=== PATIENT | female | born 1960 | race Caucasian/White ===

== ENCOUNTER 2019-07-03 09:47 | Emergency (ER) | payer BC ==
[2019-07-03 09:53] VITALS: BP 145/100
[2019-07-03] MEDS ORDERED: Naproxen TAB* 250 MG PO ONE (10:19)
--- NOTE | 2019-07-03 11:47 | ED ---
Upper Extremity Pain - HPI Summary HPI Summary: Patient is a 58-year-old female presenting to the ED after a fall last evening. She states she was drinking alcohol slipped, falling onto her left outstretched hand. She is endorsing pain over the dorsum of the left wrist without pain otherwise. There is a small abrasion to the right upper eyebrow with some ecchymosis. She denies any headache, visual changes, confusion or memory loss. She denies any other symptoms other than left wrist pain. She states she is otherwise healthy, has not taken any medication for this, however has been using ice. Symptoms are worse with flexion and extension and better with rest. She denies any decreased sensation. - History of Current Complaint Chief Complaint: EDFall Stated Complaint: LT WRIST INJ FROM FALL PER PT Time Seen by Provider: 07/03/19 09:58 Hx Obtained From: Patient Onset/Duration: Started Hours Ago Timing: Constant Severity Initially: Moderate Severity Currently: Moderate Pain Location: Wrist Character: Aching Aggravating Factor(s): Movement, Lifting, Flexion, Extension, Internal/External Rotation Alleviating Factor(s): Rest, Ice Associated Signs & Symptoms: Negative: Swelling, Redness, Bruising, Weakness, Numbness/Tingling Related History: Dominant Hand Right - Risk Factors Non-Orthopedic Risk Factor: Negative DVT Risk Factors: Negative Septic Arthritis Risk Factor: Negative Compartment Syndrome Risk Factors: Pain - Allergies/Home Medications Allergies/Adverse Reactions: Allergies Allergy/AdvReac Type Severity Reaction Status Date / Time phenytoin [From Dilantin] Allergy Severe Rash Verified 07/03/19 09:53 morphine AdvReac Severe Vomiting Verified 07/03/19 09:53 PMH/Surg Hx/FS Hx/Imm Hx Previously Healthy: Yes - Immunization History Hx Pertussis Vaccination: No Immunizations Up to Date: Yes Infectious Disease History: No Infectious Disease History: Denies: Traveled Outside the [place] in Last 30 Days - Social History Occupation: Employed Full-time Lives: With Family Alcohol Use: Occasionally Hx Substance Use: No Substance Use Type: Reports: None Hx Tobacco Use: No Smoking Status (MU): Unknown if Ever Smoked Review of Systems Negative: Fever, Chills, Fatigue, Skin Diaphoresis Negative: Palpitations, Chest Pain Negative: Shortness Of Breath, Cough Genitourinary: Negative Positive: no symptoms reported, see HPI Positive: Arthralgia. Negative: Myalgia Positive: Bruising, Other - abrasion with ecchymosis to the R upper eyebrow area Neurological: Negative All Other Systems Reviewed And Are Negative: Yes Physical Exam Triage Information Reviewed: Yes Vital Signs On Initial Exam: Initial Vitals Temp Pulse Resp BP Pulse Ox 98.6 F 95 16 145/100 98 07/03/19 09:50 07/03/19 09:50 07/03/19 09:50 07/03/19 09:50 07/03/19 09:50 Vital Signs Reviewed: Yes Appearance: Positive: Well-Appearing, Well-Nourished Skin: Positive: Skin Color Reflects Adequate Perfusion, Other - abrasion with ecchymosis to the R upper eyebrow Head/Face: Positive: Normal Head/Face Inspection Eyes: Positive: EOMI, RAMESH, Conjunctiva Clear Neck: Positive: Supple, No Lymphadenopathy Respiratory/Lung Sounds: Positive: Clear to Auscultation, Breath Sounds Present Cardiovascular: Positive: RRR, Pulses are Symmetrical in both Upper and Lower Extremities Musculoskeletal: Positive: Pain @ - left wrist pain; flexion and extension with discomfort. There is no obvious deformities noted. No ecchymosis or abrasions. Pulses +2 intact bilaterally. Good cap refill. Neurological: Positive: Speech Normal Diagnostics - Vital Signs Vital Signs Temp Pulse Resp BP Pulse Ox 07/03/19 11:30 98.6 F 95 16 145/100 98 07/03/19 09:50 98.6 F 95 16 145/100 98 - Laboratory Lab Statement: Any lab studies that have been ordered have been reviewed, and results considered in the medical decision making process. Course/Dx - Course Course Of Treatment: Physical examination, this patient has limited range of motion of flexion and extension to the left wrist. She denies any pain to the hand or to the fingers. Denies any numbness or tingling throughout. She denies any forearm pain or pain to the left wrist. She has never fractured this wrist before. She has not taken any medication prior to arrival. She is given naproxen on arrival and an x-ray was obtained. This shows a nondisplaced fracture volar aspect of the distal radius with intra-articular extension. Volar wrist splint was applied using Ortho-Glass. NV intact pre-and post splint. Patient states she is okay for discharge at this time and will follow- up with her orthopedic physician in [place] where she resides. - Diagnoses Differential Diagnosis/HQI/PQRI: Positive: Contusion, Fracture (Closed), Strain , Sprain Provider Diagnoses: Distal radial fracture Discharge ED - Sign-Out/Discharge Documenting (check all that apply): Patient Departure Patient Received Moderate/Deep Sedation with Procedure: No - Discharge Plan Condition: Stable Disposition: HOME Patient Education Materials: Wrist Fracture in Adults (ED) Referrals: No Primary Care Phys,NOPCP [Primary Care Provider] - Additional Instructions: Ibuprofen 600mg three times daily for discomfort and swelling Do not get the splint wet If it gets wet or dirty - you may change out the guadalupe bandage but keep the volar splint (hard piece) together Follow up with orthopedic physician within the next week or so - Billing Disposition and Condition Condition: STABLE Disposition: Home
== END 2019-07-03 11:30 | disposition home or self-care (01) ==
LOC: ED 09:47
DX: S52.502A Unspecified fracture of the lower end of left radius, initial encounter for closed fracture (principal); S00.211A Abrasion of right eyelid and periocular area, initial encounter; W01.0XXA Fall on same level from slipping, tripping and stumbling without subsequent striking against object, initial encounter; Y92.9 Unspecified place or not applicable
CPT/HCPCS: 99282; A9270-GY